=== PATIENT | female | born 1995 | race Caucasian/White ===

== ENCOUNTER 2020-12-24 18:35 | Emergency (ER) | payer SELFPAY ==
[~2020-12-24] VITALS: Ht 160 cm; Wt 81.8 kg
[2020-12-24 19:07] VITALS: BP 150/107
[2020-12-24] MEDS ORDERED: AMOXICILLIN/K CLAV 875/125MG TABLET. ONE (19:51)
[2020-12-24 19:55] LABS: AMORPHOUS SEDIMENT,UR PRESENT /HPF; BACTERIA,URINE FEW /HPF (0-FEW); BILIRUBIN,URINE NEG (NEG); CLARITY,URINE CLOUDY; COLOR,URINE YELLOW; GLUCOSE,URINE NEG (NEG); NITRITE,URINE NEG (NEG); RBC,URINE OCC /HPF (0-2); SQUAMOUS EPITHELIAL CELL,UR OCC /LPF; UROBILINOGEN,URINE 0.2 mg/dL (0.2 mg/dL); WBC,URINE OCC /HPF (0-4)
[2020-12-24] MEDS ORDERED: AMOXICILLIN/K CLAV 875/125MG TABLET. PO ONE (20:00)
[2020-12-24] MEDS ORDERED: KETOROLAC 60 MG/2 ML VIAL. IM ONE (20:00)
--- NOTE | 2020-12-24 20:00 | PHYS DOC ---
Past History Past Medical History: Asthma (ROBBY BYERS APRN) Past Surgical History: No Surgical History (ROBBY BYERS APRN) Alcohol Use: Occasionally (ROBBY BYERS APRN) Adult General Chief Complaint Chief Complaint: DENTAL PROBLEM HPI HPI Patient is a 25-year-old female presents to the emergency department complaining lower left wisdom tooth/gum pain for the past 2 weeks. Patient states the pain radiates into her left ear and into her throat. Patient denies numbness or tingling to her tongue or face. Patient denies any recent fever or chills, visual disturbances, headaches, chest pain, chest congestion or nasal congestion. Patient denies cough, nausea, vomiting, diarrhea, or abdominal pains. Patient denies any other physical complaints or physical concerns. Patient states her last menstrual cycle was over a year ago reporting she has an IUD placed and has not had a menstrual cycle since. Patient patient is not sure whether she is or not. Patient denies any vaginal discharge, denies urinary tract infection signs and symptoms, denies STI concerns. (ROBBY BYERS APRN) Review of Systems Review of Systems 14 body systems of review of systems have been reviewed. See HPI for pertinent positives and negative responses, otherwise all other systems are negative, nonpertinent or noncontributory. (ROBBY BYERS APRN) Current Medications Current Medications Current Medications Medications (Trade) Dose Ordered Sig/Miriam Start Time Stop Time Status Last Admin Dose Admin Amoxicillin/ Clavulanate Potassium (Augmentin 875/ 125mg) 1 tab 1X ONCE 12/24/20 20:00 12/24/20 20:01 UNV Ketorolac Tromethamine (Toradol Im) 60 mg 1X ONCE 12/24/20 20:00 12/24/20 20:01 UNV (ROBBY BYERS APRN) Allergies Allergies Allergies Coded Allergies Type Severity Reaction Last Updated Verified No Known Drug Allergies 12/24/20 No (ROBBY BYERS APRN) Physical Exam Physical Exam Constitutional: Well developed, well nourished, no acute distress, non-toxic appearance. 25-year-old female in no apparent distress. HENT: Normocephalic, atraumatic, bilateral external ears normal, oropharynx moist, no oral exudates, nose normal. Oropharynx moist, no uvular edema, marked peritonsillar swelling with exudative drainage, no postnasal drip appreciated, no deep tissue infectious process appreciated. Patient speaks in normal voice tones, no evident airway compromise. Bilateral TMs within normal limits, bilateral external auditory canals within normal limits. Bilateral nasal turbinates not erythematous, no drainage. Normal dentition however gum surface behind most rear left lower molar erythematous, swollen, no drainage appreciated. Eyes: PERRLA, EOMI, conjunctiva normal, no discharge. Neck: Normal range of motion, no tenderness, supple, no stridor. No C-spine tenderness, no meningismus signs, no nuchal rigidity. Cardiovascular:Heart rate regular rhythm, S1-S2 auscultation. Lungs & Thorax: Bilateral breath sounds clear to auscultation all lung kelly, no adventitious lung sounds appreciated. Abdomen: Bowel sounds normal, soft, no tenderness, no masses, no pulsatile masses. Skin: Warm, dry, no erythema, no rash. Back: No tenderness to palpation along midline spinal bony prominences or adjacent structures of the back. Extremities: No tenderness, no cyanosis, no clubbing, ROM intact, no edema. Neurologic: Alert and oriented X 3, normal motor function, normal sensory function, no focal deficits noted. Psychologic: Affect normal, judgement normal, mood normal. (ROBBY BYERS APRN) Current Patient Data Vital Signs Vital Signs Date Time Temp Pulse Resp B/P (MAP) Pulse Ox O2 Delivery O2 Flow Rate FiO2 12/24/20 19:07 98.1 76 18 150/107 (121) 96 Room Air Lab Results Laboratory Tests Test 12/24/20 19:25 12/24/20 19:41 Group A Streptococcus Rapid Negative (NEGATIVE) POC Urine HCG, Qualitative hcg negative (Negative) (ROBBY BYERS APRN) EKG EKG [] (ROBBY BYERS APRN) Radiology/Procedures Radiology/Procedures [] (ROBBY BYERS APRN) Heart Score C/O Chest Pain: No Risk Factors: Risk Factors: DM, Current or recent (<one month) smoker, HTN, HLP, family history of CAD, obesity. Risk Scores: Risk Factors: DM, Current or recent (<one month) smoker, HTN, HLP, family history of CAD, obesity. (ROBBY BYERS APRN) Course & Med Decision Making Course & Med Decision Making Pertinent Labs and Imaging studies reviewed. (See chart for details) 25-year-old female, vital signs reviewed, presents emergency department concerning of dental pain. Physical examination concerning for strep throat also dental infection versus wisdom tooth protrusion. ED plan will test for rapid strep A, urinalysis assay with test, consider pain medication and antibiotics pending test results. Patient's urine was not infected, she was not . Rapid strep A negative, will give 60 mg IM Toradol, will start on 875 mg Augmentin twice daily x10 days for dental infection, discussed ED planning with patient to follow-up with dentist soon, patient states she will call Saturday for an appointment to see dentist. Patient gave verbal understanding of discharge home instructions, antibiotic use, PCP follow-up, dental follow-up, return to ED precautions or concerns, was discharged home without incident. (ROBBY BYERS APRN) Dragon Disclaimer Dragon Disclaimer This electronic medical record was generated, in whole or in part, using a voice recognition dictation system. (ROBBY BYERS APRN) Departure Departure: Impression: Primary Impression: Strep pharyngitis Additional Impression: Dentalgia Disposition: 01 DC HOME SELF CARE/HOMELESS Condition: GOOD Referrals: PCP,NO (PCP) Patient Instructions: Dental Abscess Additional Instructions: Please take antibiotics as prescribed, please follow-up Saturday with your dentist for further evaluation of your dental pain, you may use [id number] ibuprofen for dental pain. Return to the emergency department for worsening symptoms or other concerns. EMERGENCY DEPARTMENT GENERAL DISCHARGE INSTRUCTIONS Thank you for coming to [facility] (ED) today and trusting us with you care. We trust that you had a positivie experience in our Emergency Department. If you wish to speak to the department management, you may call the director at [phone]. YOUR FOLLOW UP INSTRUCTIONS ARE FOLLOWS: 1. Do you have a private Doctor? If you do not have a private doctor, please ask for a resource list of physicians or clinics that may be able to assist you with follow up care. 2. The Emergency Physician has interpreted your x-rays. The X-Ray specialist will also review them. If there is a change in the findings, you will be notified in 48 hours when at all possible. 3. A lab test or culture has been done, your results will be reviewed and you will be notified if you need a change in treatment. ADDITIONAL INSTRUCTIONS AND INFORMATION: 1. Your care today has been supervised by a physician who is specially trained in emergency care. Many problems require more than one evaluation for a complete diagnosis and treatment. We recommend that you schedule your follow up appointment as recommended to ensure complete treatment of you illness or injury. If you are unable to obtain follow up care and continue to have a problem, or if your condition worsens, we recommend that you return to the ED. 2. We are not able to safely determine your condition over the phone nor are we able to give sound medical advice over the phone. For these safety reasons, if you call for medical advice we will ask you to come to the ED for further evaluation. 3. If you have any questions regarding these discharge instructions please call the ED at [phone]. SAFETY INFORMATION: In the interest of safety, wellness, and injury prevention; we encourage you to wear your sealbelt, if you smoke; quite smoking, and we encourage family to use a protective helmet for bicycling and other sporting events that present an increased risk for head injury. IF YOUR SYMPTOMS WORSEN OR NEW SYMPTOMS DEVELOP, OR YOU HAVE CONCERNS ABOUT YOUR CONDITION; OR IF YOUR CONDITION WORSENS WHILE YOU ARE WAITING FOR YOUR FOLLOW UP APPOINTMENT; EITHER CONTACT YOUR PRIMARY CARE DOCTOR, THE PHYSICIAN WHOSE NAME AND NUMBER YOU WERE GIVEN, OR RETURN TO THE ED IMMEDIATELY. Scripts Amoxicillin/Potassium Clav (AUGMENTIN 875-125 TABLET) 1 Each Tablet 1 TAB PO BID for DENTAL INFECTION for 10 Days, #20 TAB 0 Refills Prov: ROBBY BYERS APRN 12/24/20 Attending Signature Attending Signature I have participated in the care of this patient and I have reviewed and agree with all pertinent clinical information above including history, exam, and recommendations. (LISA CARDOZA MD) Problem Qualifiers ROBBY BYERS APRN Dec 24, 2020 20:00 LISA CARDOZA MD Dec 25, 2020 17:55
[2020-12-24] MEDS ORDERED: AMOX1TAB61 PO (20:01)
== END 2020-12-24 20:10 | disposition home or self-care (01) ==
LOC: ER 18:35
DX: J02.0 Streptococcal pharyngitis (principal); K08.89 Other specified disorders of teeth and supporting structures; B95.0 Streptococcus, group A, as the cause of diseases classified elsewhere; J45.909 Unspecified asthma, uncomplicated
CPT/HCPCS: 81001; 81025; 87070; 87880; 96372; 99283; J1885